=== PATIENT | male | born 1990 | race Caucasian/White ===

== ENCOUNTER → 2017-08-21 | Outpatient (CLI) | payer OTHER ==
[~2017-08-21] MED LIST: ANTIBIOTIC; Cleocin HCl300 MG PO; NAPR500 PO
== END ==
LOC: LAB SHORT 17:15 → LAB 17:15
DX: L08.9 Local infection of the skin and subcutaneous tissue, unspecified (principal)
CPT/HCPCS: 87070; 87205

== ENCOUNTER 2018-04-07 11:54 | Emergency (ER) | payer OTHER ==
[~2018-04-07] VITALS: Ht 190.5 cm; Wt 163.3 kg
[2018-04-07] MEDS ORDERED: Bactrim Ds Tab1 EACH PO (13:40)
== END 2018-04-07 13:50 | disposition home or self-care (01) ==
LOC: ER 11:54
DX: J34.0 Abscess, furuncle and carbuncle of nose (principal); F17.200 Nicotine dependence, unspecified, uncomplicated; Z86.14 Personal history of Methicillin resistant Staphylococcus aureus infection
CPT/HCPCS: 99282

== ENCOUNTER 2018-11-18 13:29 | Emergency (ER) | payer OTHER ==
[~2018-11-18] VITALS: Ht 195.6 cm; Wt 158.8 kg
[~2018-11-18 13:29] MED LIST changes: +Bactrim Ds Tab1 EACH PO
[2018-11-18] MEDS ORDERED: Prednisone20 MG PO (13:59)
[2018-11-18] MEDS ORDERED: TRIDERM28.4 GM TOP (13:59)
== END 2018-11-18 14:14 | disposition home or self-care (01) ==
LOC: ER 13:29
DX: L25.9 Unspecified contact dermatitis, unspecified cause (principal); F17.200 Nicotine dependence, unspecified, uncomplicated
CPT/HCPCS: 99282

== ENCOUNTER 2018-12-17 16:33 | Emergency (ER) | payer OTHER ==
[~2018-12-17] VITALS: Ht 190.5 cm; Wt 181.4 kg
[~2018-12-17 16:33] MED LIST changes: +Prednisone20 MG PO; +TRIDERM28.4 GM TOP
[2018-12-17] MEDS ORDERED: TRIDERM28.4 GM TOP (17:18)
[2018-12-17] MEDS ORDERED: Prednisone20 MG PO (17:18)
== END 2018-12-17 17:21 | disposition home or self-care (01) ==
LOC: ER 16:33
DX: L25.9 Unspecified contact dermatitis, unspecified cause (principal); F17.200 Nicotine dependence, unspecified, uncomplicated
CPT/HCPCS: 99282